=== PATIENT | female | born 1955 | race Caucasian/White ===

== ENCOUNTER 2024-03-09 17:03 | Emergency (ER) | payer OTHER ==
[~2024-03-09] VITALS: Ht 162.6 cm; Wt 68.5 kg
[2024-03-09 17:15] VITALS: BP 151/81; PULSE 99; RESP 18; TEMP 98.3; O2SAT 99
[2024-03-09] MEDS ORDERED: AMLODIPINE (17:15)
[2024-03-09 21:07] LABS: BASOPHILS % 0.5 % (0.0-2.0); EOSINOPHILS % 0.3 % (0.0-5.0); HEMATOCRIT. 36.1 % (36.0-48.0); HEMOGLOBIN. 12.3 g/dL (12.0-16.0); LYMPHOCYTES % 15.8 % (20.0-50.0); MEAN CORPUSCULAR HEMOGLOBIN 33.2 pg (28.0-32.0); MEAN CORPUSCULAR HGB CONC 34.1 g/dL (31.0-37.0); MEAN CORPUSCULAR VOLUME 97.4 fL (81.0-99.0); MEAN PLATELET VOLUME 7.6 fl (7.4-10.4); MONOCYTES % 5.2 % (2.0-8.0); NEUTROPHILS % 78.2 % (40.0-76.0); PLATELET 292 x1000/uL (130-400); RED BLOOD CELL COUNT 3.71 mill/uL (4.2-5.4); WHITE BLOOD COUNT 9.7 x1000/uL (4.5-11.0)
[2024-03-09 21:14] LABS: CHLORIDE 103 mEq/L (98-107); POTASSIUM 3.7 mEq/L (3.5-5.1); SODIUM 136 mEq/L (136-145)
[2024-03-09 21:15] LABS: CALCIUM 9.8 mg/dL (8.7-10.4); CARBON DIOXIDE 21 mEq/L (21-32)
[2024-03-09 21:20] LABS: CREATININE 0.6 mg/dL (0.6-1.0); GLUCOSE 104 mg/dL (70-105); UREA NITROGEN BLOOD 13 mg/dL (9-23)
[2024-03-09 21:21] LABS: TROPONIN I HIGH SENSITIVITY 4 ng/L (3.0-34)
== END 2024-03-09 22:34 | disposition home or self-care (01) ==
LOC: ER 17:03
DX: R07.89 Other chest pain (principal); I10 Essential (primary) hypertension
CPT/HCPCS: 36415; 71045; 80048; 84484; 85025; 93005; 99285

== ENCOUNTER 2025-02-23 15:39 | Emergency (ER) | payer MEDICARE ==
[~2025-02-23] VITALS: Ht 165.1 cm; Wt 62.0 kg
[~2025-02-23 15:39] MED LIST: EFXR15 MT; MIRT-89 PO; PROT40 MT
[2025-02-23 15:47] VITALS: O2SAT 100
[2025-02-23] MEDS: HALOPERIDOL LACTATE 5MG/ML VIAL IM ONE (18:09)
[2025-02-23 21:00] LABS: BASOPHILS % 0.8 % (0.0-2.0); EOSINOPHILS % 0.3 % (0.0-5.0); HEMATOCRIT. 39.5 % (36.0-48.0); HEMOGLOBIN. 13.2 g/dL (12.0-16.0); LYMPHOCYTES % 11.2 % (20.0-50.0); MEAN PLATELET VOLUME 7.3 fl (7.4-10.4); MONOCYTES % 5.4 % (2.0-8.0); NEUTROPHILS % 82.3 % (40.0-76.0); PLATELET 223 x1000/uL (130-400); RED BLOOD CELL COUNT 4.12 mill/uL (4.2-5.4); RED CELL DISTRIBUTION WIDTH 15.4 % (11.6-14.6)
[2025-02-23 21:20] LABS: ETHANOL BLOOD 279 mg/dL (<10); PROTEIN TOTAL 7.4 g/dL (6.0-8.3)
[2025-02-23 21:21] LABS: ASPARTATE AMINOTRANSFERASE 27 IU/L (<34); BILIRUBIN DIRECT < 0.1 mg/dL (<=3.0); BILIRUBIN TOTAL 0.3 mg/dL (0.1-1.0)
[2025-02-23] MEDS: MELATONIN 3MG TABLET PO SCH (21:50)
[2025-02-23 22:30] LABS: CLARITY URINE CLEAR (CLEAR); COLOR URINE YELLOW (YELLOW); GLUCOSE URINE NEGATIVE (NEGATIVE); KETONES URINE TRACE (NEGATIVE); LEUKOCYTE ESTERASE URINE NEGATIVE (NEGATIVE); NITRITE URINE NEGATIVE (NEGATIVE); OCCULT BLOOD URINE NEGATIVE (NEGATIVE); PH URINE 5.0 (4.5-8.0); PROTEIN URINE NEGATIVE (NEGATIVE); SPECIFIC GRAVITY URINE 1.014 (1.005-1.030); UROBILINOGEN URINE 0.2 E.U./dL (0.2-1.0)
[2025-02-23 22:43] LABS: *AMPHETAMINES SCREEN URINE NEGATIVE (NEGATIVE); *BARBITURATES SCREEN URINE NEGATIVE (NEGATIVE); *BENZODIAZEPINES SCREEN URINE NEGATIVE (NEGATIVE); *COCAINE SCREEN URINE NEGATIVE (NEGATIVE); CANNABINOID URINE SCREEN NEGATIVE (NEGATIVE); ECSTASY MDMA SCREEN URINE NEGATIVE (NEGATIVE); METHADONE URINE SCREEN NEGATIVE (NEGATIVE); OPIATES URINE SCREEN NEGATIVE (NEGATIVE); PHENCYCLIDINE URINE SCREEN NEGATIVE (NEGATIVE)
[2025-02-23] MEDS: ONDANSETRON 4MG ODT PO ONE (23:04)
[2025-02-23 23:39] LABS: CREATININE 0.7 mg/dL (0.6-1.0); UREA NITROGEN BLOOD 8 mg/dL (9-23)
[2025-02-24] MEDS: ONDANSETRON HCL 4MG TABLET PO ONE (17:15)
[2025-02-24] MEDS: NITROGLYCERIN 0.4MG TABLET SL SL ONE (20:25)
[2025-02-24] MEDS: AMLODIPINE 10MG TABLET PO ONE (20:29)
[2025-02-24] MEDS: CHLORDIAZEPOXIDE 25MG CAPSULE PO ONE (20:30)
[2025-02-24 20:39] VITALS: BP 145/83; PULSE 95; RESP 18; TEMP 36.9; O2SAT 100
== END 2025-02-24 21:04 ==
LOC: ER 15:39
DX: R45.1 Restlessness and agitation (principal); F10.229 Alcohol dependence with intoxication, unspecified; I10 Essential (primary) hypertension; I25.10 Atherosclerotic heart disease of native coronary artery without angina pectoris; Z79.899 Other long term (current) drug therapy; Z20.822 Contact with and (suspected) exposure to COVID-19; Y90.8 Blood alcohol level of 240 mg/100 ml or more
CPT/HCPCS: 80076; 80305; 80048; 81003; 80307; 80329; 80320 ×2; 85025; 36415 ×2; 73060; 73070; 73100; 73590; 93005; 96372; 99285; 87426; Q0162 ×2; J1630; G0480